=== PATIENT | female | born 1980 | race Hispanic/Latino ===

== ENCOUNTER 2020-01-19 05:47 | Inpatient (IN) | payer SELFPAY ==
[~2020-01-19] VITALS: Ht 167.6 cm; Wt 116.3 kg
[2020-01-19] MEDS ORDERED: KETOROLAC TROMETHAMINE 30MG/ML ONE (06:04)
[2020-01-19] MEDS ORDERED: METOCLOPRAMIDE 10 MG/2 ML VIAL ONE (06:04)
[2020-01-19] MEDS ORDERED: ONDANSETRON HCL 4 MG/2 ML VIAL ONE (06:04)
[2020-01-19 06:09] LABS: APPEARANCE,URINE SL CLOUDY (CLEAR); BILIRUBIN,URINE NEGATIVE (NEGATIVE); COLOR,URINE YELLOW (YELLOW); GLUCOSE, URINE (UA) NEGATIVE (NEGATIVE); KETONES,URINE 40 mg/dL (NEGATIVE); LEUKOCYTE ESTERASE ,URINE SMALL (NEGATIVE); NITRATE,URINE NEGATIVE (NEGATIVE); OCCULT BLOOD,URINE TRACE-INTACT (NEGATIVE); PH,URINE 5.5 (5.0-8.0); PROTEIN,URINE TRACE mg/dL (NEGATIVE); UROBILINOGEN,URINE 0.2 mg/dL (0.2-1.0)
[2020-01-19 06:18] LABS: BASOPHILS % (AUTO) 0.2 % (0.0-5.0); EOSINOPHILS % (AUTO) 0.6 % (0.0-8.0); HEMATOCRIT 38.6 % (36-48); LYMPHOCYTES % (AUTO) 8.3 % (21.0-51.0); MEAN CORPUSCULAR HEMOGLOBIN 24.1 pg (27.0-33.0); MEAN CORPUSCULAR HGB CONC 31.6 g/dL (32.0-36.0); MEAN CORPUSCULAR VOLUME 76.1 fL (79-99); MONOCYTES % (AUTO) 5.7 % (3.0-13.0); NEUTROPHILS % (AUTO) 84.8 % (40.0-77.0); PLATELET COUNT (AUTO) 298 K/uL (130-400); RED BLOOD CELL COUNT(AUTO) 5.07 MIL/uL (4.00-5.50); RED CELL DISTRIBUTION WIDTH 16.7 % (11.0-15.5); WHITE BLOOD COUNT (AUTO) 17.1 K/uL (4.8-10.8)
[2020-01-19 06:23] LABS: BACTERIA,URINE Moderate /HPF (None Seen); RBC,URINE 0-1 /HPF (0-1)
[2020-01-19 06:30] LABS: CREATININE 1.1 mg/dL (0.5-1.5); POTASSIUM 4.7 mmol/L (3.5-5.1)
[2020-01-19 06:34] LABS: ALBUMIN 3.6 g/dL (3.5-5.0); BILIRUBIN,TOTAL 0.5 mg/dL (0.2-1.0); TOTAL PROTEIN, SERUM 8.4 g/dL (6.0-8.3)
[2020-01-19 06:35] LABS: INR 0.87 (0.85-1.15); PARTIAL THROMBOPLASTIN TIME 30.5 SEC (26.3-35.5); PROTHROMBIN TIME 9.4 SEC (9.6-11.6)
[2020-01-19] MEDS ORDERED: CEFTRIAXONE SODIUM 2 GM VIAL ONE (07:23)
[2020-01-19] MEDS ORDERED: ACETAMINOPHEN 325 MG TAB ONE (09:29)
[2020-01-19] MEDS: SODIUM CHLORIDE 0.9% 1000ML 1,000 ML IV SCH ×2 (09:32→22:59)
[2020-01-19] MEDS ORDERED: ACETAMINOPHEN EXTRA STRENGTH 500 MG TABLET ONE (09:36)
[2020-01-19] MEDS: CEFTRIAXONE SODIUM 1 GM IV SCH ×2 (09:45→22:19)
[2020-01-19] MEDS ORDERED: ONDANSETRON HCL 4 MG/2 ML VIAL IV PRN (09:45)
[2020-01-19 10:19] LABS: HEMOGLOBIN A1C 9.5 % (4.0-6.0)
[2020-01-19 11:40] VITALS: BP 106/65
[2020-01-19] MEDS ORDERED: LISI10TA7 PO (13:03)
[2020-01-19] MEDS ORDERED: METF-527 PO (13:03)
[2020-01-19 15:30] VITALS: BP 103/58
[2020-01-19] MEDS ORDERED: GLUCAGON 1MG KIT 1 MG ML IM PRN (18:15)
[2020-01-19] MEDS ORDERED: DEXTROSE 50%-WATER 50 ML DISP.SYRIN IV PRN (18:15)
--- NOTE | 2020-01-19 19:50 | NUR ---
PM Assessment Received pt with NS at 150cc/hr, routine assessment done, plan of care discuss, reminded & consent obtain for plan intravenous pyelogram scheduled in AM, NPO after MN to be observed, agreed. Pt reported febrile 103.0, no culture done at this time as noted blood & urine c/s was initiated in ED earlier today. Pt denies discomfort, application of cold compress & medication of Tylenol will be initiated.
[2020-01-19 20:00] VITALS: BP 152/92
[2020-01-19] MEDS: ACETAMINOPHEN 325 MG TAB PO PRN (20:11)
[2020-01-19] MEDS: FAMOTIDINE/PF 20 MG/2 ML VIAL IV SCH (21:06)
[2020-01-19] MEDS: LISINOPRIL 10 MG TABLET PO SCH (21:07)
[2020-01-19] MEDS: INSULIN HUMULIN R 100 UNIT/ML 3ML SQ SCH (21:25)
[2020-01-19] MEDS: HYDROMORPHONE 1 MG/1 ML AMP IV PRN (23:07)
[2020-01-20 03:55] LABS: HEMATOCRIT 30.3 % (36-48); MEAN CORPUSCULAR HEMOGLOBIN 23.9 pg (27.0-33.0); MEAN CORPUSCULAR VOLUME 77.1 fL (79-99); PLATELET COUNT (AUTO) 188 K/uL (130-400); RED BLOOD CELL COUNT(AUTO) 3.93 MIL/uL (4.00-5.50); WHITE BLOOD COUNT (AUTO) 17.5 K/uL (4.8-10.8)
[2020-01-20 04:01] VITALS: BP 114/59
[2020-01-20 04:07] LABS: CREATININE 1.4 mg/dL (0.5-1.5); POTASSIUM 4.1 mmol/L (3.5-5.1)
[2020-01-20 04:43] LABS: BAND NEUTROPHILS % (MANUAL) 27 % (0-2); LYMPHOCYTES % (MANUAL) 6 % (22-44); MAN.DIFF COMMENT-IMPRESSION MANUAL DIFFERENTIAL; MONOCYTES % (MANUAL) 2 % (2-9); PLATELET MORPHOLOGY COMMENT ADEQUATE; SEGMENTED NEUTROPHILS % 65 % (40-70)
[2020-01-20] MEDS: INSULIN HUMULIN R 100 UNIT/ML 3ML SQ SCH ×4 (05:47→21:26)
[2020-01-20] MEDS: SODIUM CHLORIDE 0.9% 1000ML 1,000 ML IV SCH ×3 (05:47→22:09)
[2020-01-20 08:00] VITALS: BP 150/94
[2020-01-20] MEDS: LISINOPRIL 10 MG TABLET PO SCH ×3 (09:00→21:24)
[2020-01-20] MEDS: CEFTRIAXONE SODIUM 1 GM IV SCH (09:02)
[2020-01-20] MEDS: FAMOTIDINE/PF 20 MG/2 ML VIAL IV SCH ×2 (09:02→21:24)
--- NOTE | 2020-01-20 09:20 | NUR ---
SPOKE WITH JOSE FROM RADIOLOGY AND SHE SAID THAT IVP WILL NOT BE DONE TODAY DUE TO EQUIPMENT MALFUNCTION. ORDER TO FIX EQUIPMENT WILL BE DONE BY HER DIRECTOR TOMORROW AM. SHE ADVISED TO KEEP PATIENT NPO AFTER MIDNIGHT SHE IS NOT SURE WHAT TIME PROCEDURE WILL BE DONE TOMORROW.
[2020-01-20] MEDS: ACETAMINOPHEN 325 MG TAB PO PRN ×2 (09:36→18:09)
[2020-01-20 11:48] VITALS: BP 108/58
--- NOTE | 2020-01-20 12:29 | NUR ---
cm note patient states resides with spouse and children. is independent with ambulation and adls. and no dme. no services at home. dc plan is back to home. provided pt with list of community resource clinics and rx assist programs in the area. pt verbalizes understanding. Addendum: 01/20/20 at 1240 by ADRIANA APONTE CM Amended: Links added.
[2020-01-20] MEDS: ZOSYN 3.375GM+NS 50ML 50 ML IV SCH ×2 (15:13→22:30)
[2020-01-20 16:00] VITALS: BP 129/85
[2020-01-20 20:37] VITALS: BP 102/63
[2020-01-20] MEDS: HYDROMORPHONE 1 MG/1 ML AMP IV PRN (21:40)
[2020-01-20 23:47] VITALS: BP 134/74
[2020-01-21 03:55] VITALS: BP 144/89
[2020-01-21] MEDS: SODIUM CHLORIDE 0.9% 1000ML 1,000 ML IV SCH ×5 (04:04→22:19)
[2020-01-21 04:07] LABS: BASOPHILS % (AUTO) 0.2 % (0.0-5.0); EOSINOPHILS % (AUTO) 0.4 % (0.0-8.0); HEMATOCRIT 29.5 % (36-48); LYMPHOCYTES % (AUTO) 10.3 % (21.0-51.0); MEAN CORPUSCULAR HGB CONC 31.2 g/dL (32.0-36.0); MEAN CORPUSCULAR VOLUME 76.8 fL (79-99); MONOCYTES % (AUTO) 7.9 % (3.0-13.0); NEUTROPHILS % (AUTO) 80.7 % (40.0-77.0); PLATELET COUNT (AUTO) 161 K/uL (130-400); RED BLOOD CELL COUNT(AUTO) 3.84 MIL/uL (4.00-5.50); RED CELL DISTRIBUTION WIDTH 17.3 % (11.0-15.5); WHITE BLOOD COUNT (AUTO) 12.9 K/uL (4.8-10.8)
[2020-01-21 04:29] LABS: ALBUMIN 2.3 g/dL (3.5-5.0); BILIRUBIN,TOTAL 0.5 mg/dL (0.2-1.0); POTASSIUM 3.6 mmol/L (3.5-5.1); TOTAL PROTEIN, SERUM 6.6 g/dL (6.0-8.3)
[2020-01-21] MEDS: ZOSYN 3.375GM+NS 50ML 50 ML IV SCH ×3 (05:46→22:19)
[2020-01-21] MEDS: ACETAMINOPHEN 325 MG TAB PO PRN ×2 (05:47→15:31)
[2020-01-21 07:52] VITALS: BP 113/65
[2020-01-21] MEDS: FAMOTIDINE/PF 20 MG/2 ML VIAL IV SCH ×2 (09:32→21:19)
[2020-01-21] MEDS ORDERED: IOHEXOL 350 MG/ML 100ML INFUS..BTL IV ONE (09:48)
[2020-01-21] MEDS: LISINOPRIL 10 MG TABLET PO SCH ×2 (11:18→21:19)
[2020-01-21] MEDS: FERROUS SULFATE 325 MG TABLET.DR PO SCH ×2 (11:19→21:18)
[2020-01-21] MEDS: TAMSULOSIN HCL 0.4 MG CAP.ER.24H PO SCH (11:19)
[2020-01-21] MEDS: ASCORBIC ACID 500 MG TAB PO SCH (11:19)
--- NOTE | 2020-01-21 11:20 | NUR ---
TRANSFER REPORT REPORT GIVEN TO SHERI CALIX. PATIENT IS [id number]. NO SIGNS OF DISTRESS. PATIENT DENIES HAVING PAIN. BEING TRANSFERRED TO MEDICAL FLOOR ROOM 308.
[2020-01-21] MEDS: INSULIN LISPRO 100 UNIT/ML 3ML SQ SCH ×5 (11:30→21:00)
--- NOTE | 2020-01-21 11:30 | NUR ---
DR. HERRERA OFFICE CALLED SPOKE WITH ROSSY FOR A ORDER OF FLOMAX 0.4 MG TO BE GIVEN ONCE TONIGHT. THEN TO ORDER FLOMAX 0.4 MG FOR 2 WEEKS.
--- NOTE | 2020-01-21 12:00 | NUR ---
QING RECEIVED REPORT FROM CARA RN, PT. FROM [phone] BY WHEELCHAIR STABLE WILL CONTINUE WITH CARE.
[2020-01-21 12:27] VITALS: BP 132/90
[2020-01-21 17:14] VITALS: BP 148/85
[2020-01-21 20:00] VITALS: BP 126/83
[2020-01-21] MEDS: INSULIN GLARGINE 100 UNITS/ML 10 ML VIAL SQ SCH (21:32)
[2020-01-21 23:50] VITALS: BP 131/76
[2020-01-22] VITALS (7 sets, daily range): BP systolic 115–197; BP diastolic 63–87
[2020-01-22] MEDS: ACETAMINOPHEN 325 MG TAB PO PRN ×3 (03:30→21:13)
[2020-01-22] MEDS: INSULIN LISPRO 100 UNIT/ML 3ML SQ SCH ×7 (05:30→21:10)
[2020-01-22 05:32] LABS: BASOPHILS % (AUTO) 0.2 % (0.0-5.0); EOSINOPHILS % (AUTO) 0.8 % (0.0-8.0); HEMATOCRIT 28.5 % (36-48); LYMPHOCYTES % (AUTO) 10.3 % (21.0-51.0); MEAN CORPUSCULAR HEMOGLOBIN 23.7 pg (27.0-33.0); MEAN CORPUSCULAR HGB CONC 31.2 g/dL (32.0-36.0); MEAN CORPUSCULAR VOLUME 75.8 fL (79-99); MONOCYTES % (AUTO) 9.2 % (3.0-13.0); PLATELET COUNT (AUTO) 199 K/uL (130-400); RED BLOOD CELL COUNT(AUTO) 3.76 MIL/uL (4.00-5.50); WHITE BLOOD COUNT (AUTO) 11.8 K/uL (4.8-10.8)
[2020-01-22] MEDS: ZOSYN 3.375GM+NS 50ML 50 ML IV SCH ×3 (05:32→22:02)
[2020-01-22] MEDS: SODIUM CHLORIDE 0.9% 1000ML 1,000 ML IV SCH ×4 (05:32→22:07)
[2020-01-22 05:46] LABS: CREATININE 0.9 mg/dL (0.5-1.5); MAGNESIUM 1.4 mg/dL (1.80-2.40); PHOSPHORUS 2.3 mg/dL (2.5-4.9); POTASSIUM 3.1 mmol/L (3.5-5.1)
[2020-01-22] MEDS ORDERED: POTASSIUM CHLORIDE 20MEQ/100ML 100 ML IV PRN (08:00)
[2020-01-22] MEDS ORDERED: LIDOCAINE HCL-MPF 1% 2ML VIAL IJ PRN (08:00)
--- NOTE | 2020-01-22 08:45 | NUR ---
dr. Conway aware of consult for fevers.
[2020-01-22] MEDS ORDERED: POTASSIUM CHLORIDE 10% ELIXIR 20 MEQ/15 ML UDCUP PO PRN (10:45)
[2020-01-22] MEDS: FERROUS SULFATE 325 MG TABLET.DR PO SCH ×2 (11:28→21:02)
[2020-01-22] MEDS: TAMSULOSIN HCL 0.4 MG CAP.ER.24H PO SCH (11:28)
[2020-01-22] MEDS: ASCORBIC ACID 500 MG TAB PO SCH (11:29)
[2020-01-22] MEDS: FAMOTIDINE/PF 20 MG/2 ML VIAL IV SCH ×2 (11:29→21:02)
[2020-01-22] MEDS: LISINOPRIL 10 MG TABLET PO SCH ×2 (11:30→21:02)
[2020-01-22] MEDS: MAGNESIUM 2GM PREMIX 50ML 50 ML IV SCH (16:18)
[2020-01-22] MEDS: INSULIN GLARGINE 100 UNITS/ML 10 ML VIAL SQ SCH (21:09)
--- NOTE | 2020-01-22 21:10 | NUR ---
MEDS SHIFT ASSESSMENT DONE, PLEASE REFER TO CHART. PT CLAIMS OF STOMACH ACHE. DUE MEDS ADMINISTERED, TYLENOL PO GIVEN FOR PAINS. PT TOLERATED MEDS WELL. KEPT RESTED AND COMFORTABLE. CALL LIGHT WITHIN REACH. ENCOURAGED TO REST AND SLEEP. WILL RE-ASSESS PT. Addendum: 01/22/20 at 2152 by MICHAELLE FELIPE RN RN Amended: Links added.
[2020-01-22] MEDS: POTASSIUM CHLORIDE 20 MEQ ERTAB PO PRN (22:02)
[2020-01-23 01:01] LABS: MAGNESIUM 1.7 mg/dL (1.80-2.40); POTASSIUM 3.3 mmol/L (3.5-5.1)
--- NOTE | 2020-01-23 01:15 | NUR ---
MEDS PT'S RE-CHECK KCL=3.3 AND MG=1.7. STARTED COVERAGE OF POTASSIUM PO AND MG IV PER PROTOCOL. PT TOLERATING MEDS WELL. ENCOURAGED PT TO GO BACK TO SLEEP. WILL CONTINUE TO MONITOR.
[2020-01-23] MEDS: POTASSIUM CHLORIDE 20 MEQ ERTAB PO PRN ×2 (01:20→03:31)
[2020-01-23] MEDS: MAGNESIUM 2GM PREMIX 50ML 50 ML IV SCH (01:21)
[2020-01-23] MEDS: SODIUM CHLORIDE 0.9% 1000ML 1,000 ML IV SCH (03:31)
[2020-01-23 03:33] VITALS: BP 154/86
--- NOTE | 2020-01-23 06:00 | NUR ---
ROUNDS PT ALREADY AWAKE. NO DISTRESS NOTED. NO CONCERNS VERBALIZED. KEPT RESTED AND COMFORTABLE. PENDING REPEAT LAB WORK THIS AM. FOR MORE CARE.
[2020-01-23] MEDS: INSULIN LISPRO 100 UNIT/ML 3ML SQ SCH ×2 (06:01→06:48)
[2020-01-23] MEDS: ZOSYN 3.375GM+NS 50ML 50 ML IV SCH (06:01)
[2020-01-23 07:31] LABS: BASOPHILS % (AUTO) 0.2 % (0.0-5.0); EOSINOPHILS % (AUTO) 1.9 % (0.0-8.0); LYMPHOCYTES % (AUTO) 15.7 % (21.0-51.0); MEAN CORPUSCULAR HEMOGLOBIN 24.4 pg (27.0-33.0); MEAN CORPUSCULAR VOLUME 76.1 fL (79-99); MONOCYTES % (AUTO) 9.4 % (3.0-13.0); NEUTROPHILS % (AUTO) 71.8 % (40.0-77.0); PLATELET COUNT (AUTO) 233 K/uL (130-400); RED BLOOD CELL COUNT(AUTO) 3.94 MIL/uL (4.00-5.50)
[2020-01-23 07:41] LABS: CREATININE 0.8 mg/dL (0.5-1.5); MAGNESIUM 1.9 mg/dL (1.80-2.40); POTASSIUM 3.8 mmol/L (3.5-5.1)
[2020-01-23 08:09] VITALS: BP 149/110
[2020-01-23] MEDS: ASCORBIC ACID 500 MG TAB PO SCH (08:57)
[2020-01-23] MEDS: TAMSULOSIN HCL 0.4 MG CAP.ER.24H PO SCH (08:57)
[2020-01-23] MEDS: FERROUS SULFATE 325 MG TABLET.DR PO SCH (08:57)
[2020-01-23] MEDS: LISINOPRIL 10 MG TABLET PO SCH (08:58)
[2020-01-23] MEDS: FAMOTIDINE/PF 20 MG/2 ML VIAL IV SCH (08:58)
[2020-01-23 10:00] VITALS: BP 156/74
== END 2020-01-23 11:55 | disposition home or self-care (01) | DRG 872 ==
LOC: EDH 05:47 → EDHIP 05:48 → 4AH 11:27 → 3BH 01-21 11:55
PROVIDERS: ADMIT Family Medicine; ATTEND Family Medicine
DX: A41.9 Sepsis, unspecified organism (principal); N17.9 Acute kidney failure, unspecified; E87.1 Hypo-osmolality and hyponatremia; Z68.41 Body mass index [BMI] 40.0-44.9, adult; N13.6 Pyonephrosis; E86.1 Hypovolemia; N28.1 Cyst of kidney, acquired; R74.0 Nonspecific elevation of levels of transaminase and lactic acid dehydrogenase [LDH]; E66.01 Morbid (severe) obesity due to excess calories; R31.0 Gross hematuria; D64.9 Anemia, unspecified; E11.9 Type 2 diabetes mellitus without complications; I10 Essential (primary) hypertension; Z79.84 Long term (current) use of oral hypoglycemic drugs
CPT/HCPCS: 36415; 74176; 74400; 76770; 80048; 80053; 81001; 81025; 82270; 82948; 83036; 83540; 83550; 83605; 83690; 83735; 84100; 84132; 84145; 85025; 85610; 85730; 87040; 87088; 93005; G0378; J0696; J1170; J1815; J1885; J2405; J2543; J2765; J3475; J3490; J7030; Q9967

== ENCOUNTER 2021-10-12 19:30 | Emergency (ER) | payer OTHER, SELFPAY ==
[~2021-10-12] VITALS: Ht 165.1 cm; Wt 112.9 kg
[~2021-10-12 19:30] MED LIST: LISI10TA24 PO; METF-527 PO
[2021-10-12 20:04] LABS: BASOPHILS % (AUTO) 0.4 % (0.0-5.0); EOSINOPHILS % (AUTO) 2.8 % (0.0-8.0); HEMATOCRIT 31.6 % (36-48); LYMPHOCYTES % (AUTO) 21.1 % (21.0-51.0); MEAN CORPUSCULAR HEMOGLOBIN 24.4 pg (27.0-33.0); MEAN CORPUSCULAR HGB CONC 30.4 g/dL (32.0-36.0); MEAN CORPUSCULAR VOLUME 80.4 fL (79-99); MONOCYTES % (AUTO) 7.5 % (3.0-13.0); NEUTROPHILS % (AUTO) 67.8 % (40.0-77.0); PLATELET COUNT (AUTO) 346 K/uL (130-400); RED BLOOD CELL COUNT(AUTO) 3.93 MIL/uL (4.00-5.50); RED CELL DISTRIBUTION WIDTH 17.4 % (11.0-15.5)
[2021-10-12 20:13] LABS: CREATININE 0.9 mg/dL (0.5-1.5); POTASSIUM 4.3 mmol/L (3.5-5.1)
[2021-10-12 20:18] LABS: ALBUMIN 3.3 g/dL (3.5-5.0); BILIRUBIN,TOTAL 0.3 mg/dL (0.2-1.0); TOTAL PROTEIN, SERUM 8.2 g/dL (6.0-8.3)
[2021-10-12 22:36] VITALS: BP 128/94
[2021-10-12] MEDS ORDERED: NORG1TAB87 PO (23:13)
== END 2021-10-12 23:22 | disposition home or self-care (01) ==
LOC: EDH 19:30
DX: N93.9 Abnormal uterine and vaginal bleeding, unspecified (principal); N83.201 Unspecified ovarian cyst, right side; E11.9 Type 2 diabetes mellitus without complications; I10 Essential (primary) hypertension; Z79.84 Long term (current) use of oral hypoglycemic drugs; Z79.899 Other long term (current) drug therapy
CPT/HCPCS: 36415; 76856; 80053; 84703; 85025

== ENCOUNTER 2022-02-17 05:54 | Day surgery (SDC) | payer OTHER ==
[2022-02-12 08:57] LABS: BASOPHILS % (AUTO) 0.3 % (0.0-5.0); EOSINOPHILS % (AUTO) 3.2 % (0.0-8.0); LYMPHOCYTES % (AUTO) 21.9 % (21.0-51.0); MEAN CORPUSCULAR HEMOGLOBIN 22.8 pg (27.0-33.0); MEAN CORPUSCULAR HGB CONC 29.4 g/dL (32.0-36.0); MEAN CORPUSCULAR VOLUME 77.5 fL (79-99); MONOCYTES % (AUTO) 7.9 % (3.0-13.0); NEUTROPHILS % (AUTO) 66.3 % (40.0-77.0); PLATELET COUNT (AUTO) 317 K/uL (130-400); RED BLOOD CELL COUNT(AUTO) 4.26 MIL/uL (4.00-5.50); RED CELL DISTRIBUTION WIDTH 15.9 % (11.0-15.5); WHITE BLOOD COUNT (AUTO) 9.2 K/uL (4.8-10.8)
[2022-02-16 08:53] VITALS: BP 161/76
[~2022-02-17] VITALS: Ht 167.6 cm; Wt 110.6 kg
[2022-02-17] VITALS (17 sets, daily range): BP systolic 103–136; BP diastolic 52–84
[~2022-02-17 05:54] MED LIST changes: +FERS325 PO
[2022-02-17] MEDS ORDERED: CEFAZOLIN SODIUM 3 GM in DEXTROSE 5%-WATER 100 ML IVP SCH (06:00)
[2022-02-17] MEDS ORDERED: CEFAZOLIN SODIUM 1 GM VIAL ONE (06:18)
[2022-02-17] MEDS ORDERED: LACTATED RINGERS 1000ML 1,000 ML IV ONE (06:18)
[2022-02-17] MEDS ORDERED: CALDOLOR 800MG+NS 250ML 250 ML IV ONE (06:22)
[2022-02-17] MEDS ORDERED: PROPOFOL 10 MG/ML 20ML VIAL IV ONE (06:50)
[2022-02-17] MEDS ORDERED: MIDAZOLAM HCL 1 MG/ML 2ML VIAL IVPB ONE (06:50)
[2022-02-17] MEDS ORDERED: CEFAZOLIN SODIUM 1 GM VIAL IVP ONE (06:54)
[2022-02-17] MEDS ORDERED: FENTANYL CITRATE PF 50 MCG/1 ML 2ML VIAL IJ ONE ×2 (06:58→07:34)
[2022-02-17] MEDS ORDERED: ROCURONIUM 10MG/1ML SYR 10 MG/ML ML IV ONE (07:00)
[2022-02-17] MEDS ORDERED: ONDANSETRON 4MG INJ IVP ONE (07:18)
[2022-02-17] MEDS ORDERED: GLYCOPYRROLATE 1 MG/5 ML SYRINGE IV ONE (07:35)
[2022-02-17] MEDS ORDERED: NEOSTIGMINE 5MG/5ML SYR IV ONE (07:35)
== END 2022-02-17 09:40 | disposition home or self-care (01) ==
LOC: DAH 05:54
PROVIDERS: ATTEND Obstetrics & Gynecology
DX: N92.1 Excessive and frequent menstruation with irregular cycle (principal); N84.0 Polyp of corpus uteri; I10 Essential (primary) hypertension; E11.9 Type 2 diabetes mellitus without complications; E66.9 Obesity, unspecified; D64.9 Anemia, unspecified; Z98.890 Other specified postprocedural states; Z98.891 History of uterine scar from previous surgery; Z98.51 Tubal ligation status; Z83.3 Family history of diabetes mellitus; Z80.3 Family history of malignant neoplasm of breast; Z83.42 Family history of familial hypercholesterolemia; Z82.49 Family history of ischemic heart disease and other diseases of the circulatory system; Z79.899 Other long term (current) drug therapy
CPT/HCPCS: 36415 ×2; 58563; 82948 ×2; 84703; 85025; 86850 ×2; 86900 ×2; 86901 ×2; 87635; A4215 ×2; A4221; A4222; A4223 ×2; A4351; A4355; A4663; C9803; J0690 ×2; J1741; J2250; J2405; J2704; J2710; J3010 ×2; J3490; J7030 ×2; J7120; J7060

== ENCOUNTER → 2025-09-30 | Outpatient (CLI) | payer OTHER | END | disposition home or self-care (01) | LOC: RAH 16:21 | PROVIDERS: ATTEND Family Medicine | DX: Z12.31 Encounter for screening mammogram for malignant neoplasm of breast (principal) | CPT/HCPCS: 77067 ==